=== PATIENT | female | born 1955 | race Hispanic/Latino ===

== ENCOUNTER → 2017-09-15 | Emergency (ER) | payer SELFPAY ==
[~2017-09-15] VITALS: Ht 152.4 cm; Wt 49.0 kg
[~2017-09-15] MED LIST: AMLODIPINE BESYL5 MG PO; ATORVASTATIN CA10 MG PO; B-COMPLEX-VITA1 EACH PO; CALTRATE+D3 PL1 EACH PO; GLICLAZIDE PO; GLIPIZIDE10 MG PO; GLIPIZIDE5 MG PO; JENTADUETO 2.51 EAC2 PO; JENTADUETO XR1 EAC1 PO; LOSARTAN POTASS50 MG PO; METFORMIN HCL1000 MG PO; MOBIC7.5 MG PO; NAPROSYN500 MG PO
[2017-09-15 12:34] VITALS: BP 174/80
== END | disposition home or self-care (01) ==
LOC: EME 10:15
DX: M54.42 Lumbago with sciatica, left side (principal); E11.9 Type 2 diabetes mellitus without complications; Z79.84 Long term (current) use of oral hypoglycemic drugs
CPT/HCPCS: 99281; 99283; J1885